=== PATIENT | male | born 1965 | race Caucasian/White ===

== ENCOUNTER 2016-10-04 17:12 | Emergency (ER) | payer BC ==
[2016-10-04 17:32] VITALS: BP 134/85
--- NOTE | 2016-10-04 18:19 | UC ---
Ear Complaint HPI - HPI Summary HPI Summary: Pt presents to the [facility] with complaint of 4-5 days right ear pain. pt states also feels decreased hearing on right. No discharge. Pt also reports sinus congestion and PND. Pt takes Zyrtec with little improved. No cp, sob, abd pain. No n/v/d. No swimming. States pressure in ear. Pt has previously taken flonase - none currently No analgesia taken Pt is a diabetic - metformin pt's medications reviewed at this visit - History of Current Complaint Chief Complaint: UCEar Stated Complaint: EAR PAIN Time Seen by Provider: 10/04/16 18:01 Hx Obtained From: Patient Severity Initially: Mild Severity Currently: Moderate Pain Intensity: 4 Aggravating Factors: Nothing Alleviating Factors: Nothing Associated Signs/Symptoms: Positive: Hearing Loss, URI Symptoms. Negative: Discharge, Foreign Body Sensation, Trauma to Ear, Swelling @ Related History: Seasonal Allergies - Allergies/Home Medications Allergies/Adverse Reactions: Allergies Allergy/AdvReac Type Severity Reaction Status Date / Time environmental Allergy Runny Nose Uncoded 10/04/16 17:33 Home Medications: Home Medications Atorvastatin* [Lipitor*] 10 mg PO DAILY 10/04/16 [History Confirmed 10/04/16] Glimepiride [Amaryl] 4 mg PO DAILY 10/04/16 [History Confirmed 10/04/16] Lactobacillus [Probiotic] 1 cap PO DAILY 10/04/16 [History Confirmed 10/04/16] Magnesium 500 mg PO DAILY 10/04/16 [History Confirmed 10/04/16] Metformin HCl [Glucophage Xr] 750 mg PO BID 10/04/16 [History Confirmed 10/04/16 ] Multiple Vitamins W/ Minerals [Multivitamin Men 50+] 1 tab PO DAILY 10/04/16 [ History Confirmed 10/04/16] Naproxen 500 mg PO BID PRN 10/04/16 [History Confirmed 10/04/16] Omeprazole 40 mg PO BID 10/04/16 [History Confirmed 10/04/16] PMH/Surg Hx/FS Hx/Imm Hx Previously Healthy: Yes Endocrine History: Diabetes Cardiovascular History: Hypertension - Surgical History Surgical History: Yes Surgery Procedure, Year, and Place: HERNIA REPAIR, KNEE SURGERY - Family History Known Family History: Positive: None - Social History 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 Lives: With Family Alcohol Use: Rare Substance Use Type: None Smoking Status (MU): Former Smoker When Did the Patient Quit Smoking/Using Tobacco: 1988 Review of Systems Constitutional: Negative Skin: Negative Eyes: Negative ENT: Ear Ache, Sinus Congestion Respiratory: Negative Cardiovascular: Negative Gastrointestinal: Negative Genitourinary: Negative Motor: Negative Neurovascular: Negative Musculoskeletal: Negative Neurological: Negative Psychological: Negative All Other Systems Reviewed And Are Negative: Yes Physical Exam Triage Information Reviewed: Yes Appearance: Well-Appearing, No Pain Distress, Well-Nourished Vital Signs: Initial Vital Signs Temp 97.9 F 10/04/16 17:26 Pulse 86 10/04/16 17:26 Resp 16 10/04/16 17:26 BP 134/85 10/04/16 17:26 Pulse Ox 97 10/04/16 17:26 Vital Signs Reviewed: Yes Eye Exam: Normal Eyes: Positive: Conjunctiva Clear. Negative: Conjunctiva Inflamed, Discharge ENT Exam: Normal ENT: Positive: Hearing grossly normal, Pharynx normal, Nasal congestion, TM bulging, Other: - left TM wnl right TM ++ thick appearing, white opacification TM bulge, mild erythema turbinates inflammed, boggy + PND no erythema. Negative: TMs normal, Tonsillar swelling, Tonsillar exudate Dental Exam: Normal Neck exam: Normal Neck: Positive: Supple, Nontender, No Lymphadenopathy Respiratory Exam: Normal Respiratory: Positive: Chest non-tender, Lungs clear, Normal breath sounds, No respiratory distress, No accessory muscle use Cardiovascular Exam: Normal Cardiovascular: Positive: RRR, No Murmur, Pulses Normal Abdominal Exam: Normal Abdomen Description: Positive: Nontender, No Organomegaly, Soft Bowel Sounds: Positive: Present Musculoskeletal Exam: Normal Neurological Exam: Normal Neurological: Positive: Alert Psychological Exam: Normal Psychological: Positive: Normal Response To Family Skin Exam: Normal Ear Complaint Course/Dx - Course Course Of Treatment: Pt with right ear pain progressive x 3 days and sinus congestion. On exam pt with right OM with apparent purulent fluid. turbinates inflammed. Rx augmentin. motrin/apap. flonase - pt aware may cause increased BG. Pt comfortable and in agreement with plan - Differential Dx/Diagnosis Provider Diagnoses: right otitis media Discharge - Discharge Plan Condition: Stable Disposition: HOME Prescriptions: Amoxicillin/Clavulanate TAB* [Augmentin TAB 875*] 875 mg PO BID #20 tab Fluticasone NASAL SPRAY 50MCG* [Flonase NASAL SPRAY 50MCG*] 1 spray BOTH NARES DAILY #1 btl Patient Education Materials: Otitis Media (ED) Referrals: Wai Lux PA [Primary Care Provider] - Additional Instructions: - Okay to alternate ibuprofen (Advil, Motrin) and Tylenol every 3 hours for pain. Take with food. Do NOT take for more than 4-5 days - take antibiotics as prescribed until gone - these will likely cause diarrhea - this is normal - use nasal spray once a day as prescribed - Stay well hydrated - your ear pain will improve faster than the changes to your hearing. This is normal - keep your appointment with your primary doctor as scheduled on October 14 Call your doctor or return with questions or concerns
== END 2016-10-04 18:24 | disposition home or self-care (01) ==
LOC: UCCORT 17:12
DX: H66.91 Otitis media, unspecified, right ear (principal); E11.9 Type 2 diabetes mellitus without complications; Z79.84 Long term (current) use of oral hypoglycemic drugs; I10 Essential (primary) hypertension; Z87.891 Personal history of nicotine dependence
CPT/HCPCS: 99212; G0463

== ENCOUNTER 2018-01-18 14:17 | Emergency (ER) | payer BC ==
[2018-01-18 16:33] VITALS: BP 122/83
--- NOTE | 2018-01-18 16:56 | UC ---
Complaint Male HPI - HPI Summary HPI Summary: C/O lower abdominal aching and pain with urination x 2 days. No fevers sweats or chills. - History of Current Complaint Chief Complaint: UCAbdominalPain Stated Complaint: URINARY COMPLAINT Time Seen by Provider: 01/18/18 16:32 Hx Obtained From: Patient Onset/Duration: Sudden Onset, Lasting Days - 2, Still Present Timing: Constant Severity Initially: Moderate Severity Currently: Moderate Pain Intensity: 5 Location: Penis Character: Burning, Constant Pressure Aggravating Factor(s): Voiding Alleviating Factor(s): Nothing Associated Signs And Symptoms: Positive: Dysuria. Negative: Diaphoresis, Back Pain, Fever, Hematuria, Penile Swelling, Penile Discharge - Allergies/Home Medications Allergies/Adverse Reactions: Allergies Allergy/AdvReac Type Severity Reaction Status Date / Time environmental Allergy Runny Nose Uncoded 01/18/18 16:34 Home Medications: Home Medications Empagliflozin [Jardiance] 10 mg PO DAILY 01/18/18 [History Confirmed 01/18/18] PMH/Surg Hx/FS Hx/Imm Hx Endocrine History: Diabetes Cardiovascular History: Hypertension - Surgical History Surgical History: Yes Surgery Procedure, Year, and Place: HERNIA REPAIR, KNEE SURGERY - Family History Known Family History: Positive: Diabetes - Social History Occupation: Employed Full-time Lives: With Family Alcohol Use: Rare Substance Use Type: None Smoking Status (MU): Former Smoker When Did the Patient Quit Smoking/Using Tobacco: 1988 Review of Systems All Other Systems Reviewed And Are Negative: Yes Genitourinary: Positive: Dysuria. Negative: Frequency, Urgency Physical Exam Triage Information Reviewed: Yes Appearance: Well-Appearing, Well-Nourished, Pain Distress - mild Vital Signs: Initial Vital Signs Temp 98.0 F 01/18/18 16:29 Pulse 118 01/18/18 16:29 Resp 16 01/18/18 16:29 BP 122/83 01/18/18 16:29 Pulse Ox 99 01/18/18 16:29 Vital Signs Reviewed: Yes ENT: Positive: Pharynx normal, TMs normal Neck exam: Normal Respiratory Exam: Normal Cardiovascular Exam: Normal Abdomen Description: Positive: No Organomegaly, Soft. Negative: Nontender - suprapubic tenderness, Peritoneal Signs Bowel Sounds: Positive: Present Musculoskeletal Exam: Normal Neurological Exam: Normal Psychological Exam: Normal Skin Exam: Normal Complaint Male Course/Dx - Differential Dx/Diagnosis Differential Diagnosis/HQI/PQRI: Epididymitis, Prostatitis, Pyelonephritis, Urinary Tract Infection Provider Diagnoses: Acute prostatitis Discharge - Sign-Out/Discharge Documenting (check all that apply): Patient Departure All imaging exams completed and their final reports reviewed: No Studies - Discharge Plan Condition: Stable Disposition: HOME Prescriptions: Sulfamethox/Trimethoprim DS* [Bactrim DS 800/160 TAB*] 1 tab PO BID #20 tab Patient Education Materials: Prostatitis (ED), Sulfamethoxazole/Trimethoprim ( By mouth) Referrals: Wai Lux PA [Primary Care Provider] - - Billing Disposition and Condition Condition: STABLE Disposition: Home
== END 2018-01-18 17:02 | disposition home or self-care (01) ==
LOC: UCCORT 14:17
DX: N41.0 Acute prostatitis (principal); E11.9 Type 2 diabetes mellitus without complications; I10 Essential (primary) hypertension; Z91.048 Other nonmedicinal substance allergy status; Z87.891 Personal history of nicotine dependence
CPT/HCPCS: 81003; 99212; G0463